=== PATIENT | female | born 1950 | race Hispanic/Latino ===

== ENCOUNTER → 2017-09-27 | Outpatient (CLI) | payer MEDICARE, OTHER ==
--- NOTE | 2017-09-27 23:41 | Diagnostic Imaging Report ---
History: Back pain. Comparison studies: None Technique: Sagittal , coronal and axial T2 , sagittal T1 and IR, axial T2 FS and PD. Intravenous contrast: None Findings: Number of lumbar vertebral bodies: 5. Alignment: Normal lordosis. Mild levocurvature of the lumbar spine. 2 mm grade 1 anterolisthesis at L4-L5 and 3 mm grade 1 retrolisthesis at L5-S1. Soft tissues: Nonspecific right moderate hydronephrosis is partially visualized. Paraspinal muscles: No signal abnormalities. Well-preserved. No atrophic changes Lower thoracic cord: Normal in signal and morphology. The tip of the conus is at superior endplate of L2 . Cauda equina: No masses. No arachnoiditis. Vertebrae: Superior endplate Schmorl's node at L3. No compression fractures, infection or neoplasm. Degenerative changes: L1-L2: No abnormalities L2-L3: Mild degenerative disc disease and superior endplate Schmorl's node at L3. No canal or foraminal stenosis. L3-L4: Mild degenerative disc disease. Mild disc bulge towards the left without canal or foraminal stenosis. L4-L5: Mild degenerative disc disease. Disc bulge in combination with buckling of markedly thickened ligamentum flavum and bilateral facet arthrosis results in moderate to severe canal stenosis. No significant foraminal stenosis. Bilateral severe facet arthrosis with small amount of fluid in the facet joints. L5-S1: Mild degenerative disc disease. Disc bulge with superimposed 4.5 mm left subarticular disc protrusion with possible contact of left S1 nerve root. No significant canal or foraminal stenosis. Moderate right and mild left facet arthrosis. Visualized portion of bilateral sacroiliac joints: No significant abnormality. IMPRESSION: 1. Lumbar spondylosis extends from L2-L3 through L5-S1, results in moderate to severe canal stenosis at L4-L5. 2. Left subarticular disc protrusion at L5-S1 with possible contact of left S1 nerve root. 3. No significant foraminal stenosis. 4. Grade 1 anterolisthesis at L4-L5 and retrolisthesis at L5-S1. Mild levocurvature of the lumbar spine. 5. Incidental moderate right hydronephrosis is partially visualized, consider follow-up with dedicated renal ultrasonogram if previous workup has not been done. Signed by: Dr. Renate Forrester M.D. on 09/27/2017 11:38 PM
== END ==
LOC: MRI 14:00
PROVIDERS: ATTEND Emergency Medicine
DX: M54.16 Radiculopathy, lumbar region (principal); K76.0 Fatty (change of) liver, not elsewhere classified; K82.4 Cholesterolosis of gallbladder
CPT/HCPCS: 72148

== ENCOUNTER → 2017-10-04 | Outpatient (CLI) | payer MEDICARE, OTHER ==
--- NOTE | 2017-10-04 11:22 | Diagnostic Imaging Report ---
PROCEDURE:LIMITED ABDOMINAL ULTRASOUND COMPARISON:None. INDICATIONS:HEPATIC STEATOSIS, CHOLESTEROLOSIS OF GB FINDINGS: Liver: 17.8 cm in right mid-clavicular line. The liver demonstrates increased echogenicity with an area of focal fatty sparing near the gallbladder. No evidence of mass. Main portal vein: 1.2 cm in caliber. Hepatopedal flow. Gallbladder: No wall thickening, pericholecystic fluid, or shadowing calculus. Echogenic polyp along the anterior wall measures 5.9 mm with vascular flow. Common Bile Duct: 0.5 cm in caliber. Sonographic Cat's sign: Reported as negative. Right kidney: 11.5 cm. Normal renal cortical echogenicity. No solid masses. Moderate right hydronephrosis which persisted upon voiding. Pancreas: The visualized portions are unremarkable. Inferior vena cava: Patent Aorta: Non-aneurysmal Ascites: None in the right upper quadrant of the abdomen. CONCLUSION: Stable 5.9 mm gallbladder polyp. Followup right upper quadrant ultrasound in one year is suggested to assess for stability. Moderate right hydronephrosis, new since prior ultrasound, of unclear significance. No evidence of stone. The left kidney was not evaluated on this study. Dedicated abdominal CT or renal ultrasound is recommended for further evaluation. Hepatomegaly with fatty liver. Dictated by: LUANA LOMELI M.D. on 10/04/2017 at 11:26 Electronically approved by: LUANA LOMELI M.D. on 10/04/2017 at 11:26
== END ==
LOC: US 09:57
PROVIDERS: ATTEND Emergency Medicine
DX: M54.16 Radiculopathy, lumbar region (principal); K76.0 Fatty (change of) liver, not elsewhere classified; K82.4 Cholesterolosis of gallbladder
CPT/HCPCS: 76705

== ENCOUNTER → 2018-04-29 | Outpatient (CLI) | payer MEDICARE, OTHER ==
--- NOTE | 2018-04-29 15:16 | Diagnostic Imaging Report ---
EXAM: BONE MINERAL DENSITY HISTORY: Bone mineralization evaluation COMPARISON: None DISCUSSION: Evaluation of the left hip and lumbar spine was performed utilizing DEXA Hologic bone densitometer. The study is technically adequate. Left hip femoral neck bone mineral density: 0.59 g/cm2, T-score is -2.4, Z-score is -0.8. Left hip total bone mineral density: 0.73 g/cm2, T-score is -1.7, Z-score is -0.4. Lumbar spine total bone mineral density: 0.79 gm/cm2, T-score is -2.3, Z-score is -0.2. 10 year fracture risk major osteoporotic fracture 6.6% and hip fracture 1.2%. Impression: Bone mineralization by WHO Classification is low bone mass/osteopenia, the fracture risk is increased. Signed by: Dr. Yariel Hanson M.D. on 04/29/2018 3:13 PM
--- NOTE | 2018-04-29 16:55 | Diagnostic Imaging Report ---
Radiographs of the left and right ankle 3 views each ankle - HISTORY: Pain COMPARISON: None available. FINDINGS: Bones: No acute displaced fracture. Osseous alignment is within normal limits. Joints: Scattered degenerative change. No osseous erosion. Posterior calcaneal bone spurs. Soft tissues: The soft tissues appear unremarkable. IMPRESSION: Scattered degenerative change. No osseous erosion. Posterior calcaneal bone spurs. Signed by: Dr. Balwinder Germain M.D. on 04/29/2018 4:51 PM
--- NOTE | 2018-04-29 16:57 | Diagnostic Imaging Report ---
Radiographs of the left foot 3 views HISTORY: Pain COMPARISON: None available. FINDINGS: Bones: No acute displaced fracture. Osseous alignment is within normal limits. Joints: Scattered degenerative change. No osseous erosion. Posterior calcaneal bone spur Soft tissues: Soft tissue prominence at the dorsal aspect of the foot. IMPRESSION: Scattered degenerative change. No osseous erosion. Posterior calcaneal bone spur Soft tissue prominence at the dorsal aspect of the foot Signed by: Dr. Balwinder Germain M.D. on 04/29/2018 4:54 PM
== END ==
LOC: DX 14:12
PROVIDERS: ATTEND Emergency Medicine
DX: M81.0 Age-related osteoporosis without current pathological fracture (principal)
CPT/HCPCS: 77080

== ENCOUNTER 2019-01-13 07:21 | Inpatient (IN) | payer MEDICARE, OTHER ==
--- NOTE | 2019-01-02 13:08 | Diagnostic Imaging Report ---
Chest, 2 views, 01/02/2019. History: Preop, gastric sleeve surgery. Comparison: None available. Findings: The cardiomediastinal silhouette and pulmonary vasculature are within normal limits. There is minimal biapical pleural thickening. The lungs are clear without evidence of consolidation or pleural effusion. Mild degenerative changes are present in the thoracic spine. There are no acute osseous or soft tissue abnormalities. Impression: No acute cardiopulmonary abnormality. Signed by: Wallace Bell on 01/02/2019 1:04 PM
[2019-01-02 13:11] LABS: BASOPHILS % 0.1 % (0.0-1.0); EOSINOPHILS # (AUTO) 0.1 (0.0-0.4); EOSINOPHILS % 0.9 % (0.0-6.0); HEMATOCRIT 41.3 % (34.2-44.1); HEMOGLOBIN 14.2 g/dL (12.0-16.0); LYMPHOCYTES # (AUTO) 2.9 (1.0-3.2); LYMPHOCYTES % 37.2 % (18.0-39.1); MEAN CORPUSCULAR HEMOGLOBIN 30.1 pg (28-32); MEAN CORPUSCULAR HGB CONC 34.4 g/dL (31-35); MEAN CORPUSCULAR VOLUME 87.5 fL (81-99); MONOCYTES # (AUTO) 0.4 (0.2-0.8); MONOCYTES % 5.3 % (4.4-11.3); NEUTROPHILS # (AUTO) 4.3 (2.1-6.9); NEUTROPHILS % 56.2 % (38.7-80.0); PLATELET COUNT 279 x10e3/uL (140-360); RED BLOOD COUNT 4.72 x10e6/uL (3.6-5.1); RED CELL DISTRIBUTION WIDTH 12.6 % (11.7-14.4)
[~2019-01-13] VITALS: Ht 160 cm; Wt 98.9 kg
[~2019-01-13 07:21] MED LIST: AMLODIPINE BESY10 MG PO; CALCIUM GUMMIE1 EACH PO; CLONIDINE HCL0.2 MG PO; IBUPROFEN200 MG PO; LISINOPRIL10 MG PO; OMEPRAZOLE40 MG PO; PRAVASTATIN SOD40 MG PO; [UNRECOGNIZED DRUG - OTHER] PO
--- OUTSIDE RECORDS SUMMARY | 2019-01-13 07:37 | XMS REPORT ---
Author Author [facility] Address Unknown Phone Unavailable Care Team Providers Care Recycling Specialist Name Role Phone Chantelle FONG Unavailable Unavailable ANGELITO JONES Unavailable Unavailable Problems This patient has no known problems. Allergies, Adverse Reactions, Alerts This patient has no known allergies or adverse reactions. Medications This patient has no known medications. Results Test Description Test Time Test Comments Text Results Atomic Results Result Comments CHEST 2 VIEWS 2019-01-02 13:04:00 [place] [address] Patient Name: GRANT DE JESUS MR #: [id number] : 1950 Age/Sex: 68/F Req #: [id number] Adm Physician: Ordered by: LIONEL FONG MD Report #: [id number] Location: OR Room/Bed: Procedure: [id number] DX/CHEST 2 VIEWS Exam Date: 01/02/19 Exam Time: 1233 REPORT STATUS: Signed Chest, 2 views, 01/02/2019. History: Preop, g astric sleeve surgery. Comparison: None available. Findings: The cardiomediastinal silhouette and pulmonary vasculature are within normal limits. There is minimal biapical pleural thickening. The lungs are clear without evidence of consolidation or pleural effusion. Mild degenerative changes are present in the thoracic spine. There are no acute osseous or soft tissue abnormalities. Impression: No acute cardiopulmonary abnormality. Signed by: Wallace Bell on 01/02/2019 1:04 PM Dictated By: WALLACE BELL MD 03 Transcribed By: ITZEL on 01/02/191303 COPY TO: LIONEL FONG MD FOOT LEFT COMPLETE 2018-04-29 16:52:00 [facility] [address] [place] [address] Patient Name: GRANT DE JESUS MR #: [id number] : 1950 Age/Sex: 67/F Req #: [id number] Adm Physician: Ordered by: ANGELITO JONES MD Report #: [id number] Location: DX Room/Bed: Procedure: [id number] DX/FOOT LEFT COMPLETE Exam Date: 04/29/18 Exam Time: 1538 REPORT STATUS: Signed Radiographs of the left foot 3 views HISTORY: Pain COMPARISON: None available. FINDINGS: Bones: No acute displaced fracture. Osseous alignment is within normal limits. Joints: Scattered degenerative change. No osseous erosion. Posterior calcaneal bone spur Soft tissues: Soft tissue prominence at the dorsal aspect of the foot. IMPRESSION: Scattered degenerative change. No osseous erosion. Posterior calcaneal bone spur Soft tissue prominence at the dorsal aspect of the foot Signed by: Dr. Argenis Germain M.D. on 04/29/2018 4:54 PM Dictated By: ARGENIS GERMAIN MD, MD 1654 Transcribed By: ITZEL on 04/29/181653 COPY TO: ANGELITO JONES MD ANKLE COMPLETE BILATERAL 2018-04-29 16:50:00 [facility] [address] [place] [address] Patient Name: GRANT DE JESUS MR #: [id number] : 1950 Age/Sex: 67/F Req #: [id number] Adm Physician: Ordered by: ANGELITO JONES MD Report #: [id number] Location: DX Room/Bed: Procedure: [id number] DX/ANKLE COMPLETE BILATERAL Exam Date: Exam Time: REPORT STATUS: Signed Radiographs of the left and right ankle 3 views each ankle - HISTORY: Pain COMPARISON: None available. FINDINGS: Bones: No acute displaced fracture. Osseous alignment is within normal limits. Joints: Scattered degenerative change. No osseous erosion. Posterior calcaneal bone spurs. Soft tissues: The soft tissues appear unremarkable. IMPRESSION: Scattered degenerative change. No osseous erosion. Posterior calcaneal bone spurs. Signed by: Dr. Argenis Germain M.D. on 04/29/2018 4:51 PM Dictated By: ARGENIS GERMAIN MD, MD 50 Transcribed By: ITZEL on 04/29/181650 COPY TO: ANGELITO JONES MD BONE DXA DUAL ENERGY 2018-04-29 15:12:00 [facility] [address] [place] [address] Patient Name: GRANT DE JESUS MR #: [id number] : 1950 Age/Sex: 67/F Req #: [id number] Adm Physician: Ordered by: ANGELITO JONES MD Report #: [id number] Location: DX Room/Bed: Procedure: [id number] DX/BONE DXA DUAL ENERGY Exam Date: Exam Time: REPORT STATUS: Signed EXAM: BONE MINERAL DENSITY HISTORY: Bone mineralization evaluation COMPARISON: None DISCUSSION: Evaluation of the left hip and lumbar spine was performed utilizing DEXA Hologic bone densitometer. The study is technically adequate. Left hip femoral neck bone mineral density: 0.59 g/cm2, T-score is -2.4, Z-score is -0.8. Left hip total bone mineral density: 0.73 g/cm2, T-score is -1.7, Z-score is -0.4. Lumbar spine total bone mineral density: 0.79 gm/cm2, T-score is -2.3, Z-score is -0.2. 10 year fracture risk major osteoporotic fracture 6.6% and hip fracture 1.2%. Impression: Bone mineralization by WHO Classification is low bone mass/osteopenia, the fracture risk is increased. Signed by: Dr. Talia Lebron M.D. on 04/29/2018 3:13 PM Dictated By: TALIA LEBRON MD 1513 Transcribed By: ITZEL on 04/29/18 1516 COPY TO: ANGELITO JONES MD US ABDOMEN LIMITED 2017-10-04 11:26:00 [place] [address] Patient Name: GRANT DE JESUS MR #: [id number] : 1950 Age/Sex: 66/F Req #: [id number] Adm Physician: Ordered by: ANGELITO JONES MD Report #: [id number] Location: Room/Bed: Procedure: [id number] US/US ABDOMEN LIMITED Exam Date: 10/04/17 Exam Time: 1017 REPORT STATUS: Signed PROCEDURE: LIMITED ABDOMINAL ULTRASOUND COMPARISON: None. INDICATIONS: HEPATIC STEATOSIS, CHOLESTEROLOSIS OF GB FINDINGS: Liver: 17.8 cm in right mid-clavicular line. The liver demonstrates increased echogenicity with an area of focal fatty sparing near the gallbladder. No evidence of mass. Main portal vein: 1.2 cm in caliber. Hepatopedal flow. Gallbladder: No wall thickening, pericholecystic fluid, or shadowing calculus. Echogenic polyp along the anterior wall measures 5.9 mm with vascular flow. Common Bile Duct: 0.5 cm in caliber. Sonographic Cat's sign: Reported as negative. Right kidney: 11.5 cm. Normal renal cortical echogenicity. No solid masses. Moderate right hydronephrosis which persisted upon voiding. Pancreas: The visualized portions are unremarkable. Inferior vena cava: Patent Aorta: Non-aneurysmal Ascites: None in the right upper quadrant of the abdomen. CONCLUSION: Stable 5.9 mm gallbladder polyp. Followup right upper quadrant ultrasound in one year is suggested to assess for stability. Moderate right hydronephrosis, new since prior ultrasound, of unclear significance. No evidence of stone. The left kidney was not evaluated on this study. Dedicated abdominal CT or renal ultrasound is recommended for further evaluation. Hepatomegaly with fatty liver. Dictated by: LUANA LOMELI M.D. on 10/04/2017 at 11:26 Electronically approved by: LUANA LOMELI M.D. on 10/04/2017 at 11:26 Dictated By: LUANA LOMELI MD 1126 Transcribed By: JAYDE on 10/04/17 1126 COPY TO: ANGELITO JONES MD MRI SPINE LUMBAR WO 2017-09-27 23:17:[address] [place] [address] Patient Name: GRANT DE JESUS MR #: [id number] : 1950 Age/Sex: 66/F Acc #: [id number] Req #: [id number] [facility] Physician: Ordered by: ANGELITO JONES MD Report #: [id number] Location: MRI Room/Bed: Procedure: [id number] MRI/MRI SPINE LUMBAR WO Exam Date: Exam Time: REPORT STATUS: Signed History: Back pain. Comparison studies: None Technique: Sagittal , coronal and axial T2 , sagittal T1 and IR, axial T2 FS and PD. Intravenous contrast: None Findings: Number of lumbar vertebral bodies: 5. Alignment: Normal lordosis. Mild levocurvature of the lumbar spine. 2 mm grade 1 anterolisthesis at L4-L5 and 3 mm grade 1 retrolisthesis at L5-S1. Soft tissues: Nonspecific right moderate hydronephrosis is partially visualized. Paraspinal muscles: No signal abnormalities. Well-preserved. No atrophic changes Lower thoracic cord: Normal in signal and morphology. The tip of the conus is at superior endplate of L2 . Cauda equina: No masses. No arachnoiditis. Vertebrae: Superior endplate Schmorl's node at L3. No compression fractures, infection or neoplasm. Degenerative changes: L1-L2: No abnormalities L2-L3: Mild degenerative disc disease and superior endplate Schmorl's node at L3. No canal or foraminal stenosis. L3-L4: Mild degenerative disc disease. Mild disc bulge towards the left without canal or foraminal stenosis. L4-L5: Mild degenerative disc disease. Disc bulge in combination with buckling of markedly thickened ligamentum flavum and bilateral facet arthrosis results in moderate to severe canal stenosis. No significant foraminal stenosis. Bilateral severe facet arthrosis with small amount of fluid in the facet joints. L5-S1: Mild degenerative disc disease. Disc bulge with superimposed 4.5 mm left subarticular disc protrusion with possible contact of left S1 nerve root. No significant canal or foraminal stenosis. Moderate right and mild left facet arthrosis. Visualized portion of bilateral sacroiliac joints: No significant abnormality. IMPRESSION: 1. Lumbar spondylosis extends from L2-L3 through L5-S1, results in moderate to severe canal stenosis at L4- L5. 2. Left subarticular disc protrusion at L5-S1 with possible contact of left S1 nerve root. 3. No significant foraminal stenosis. 4. Grade 1 anterolisthesis at L4-L5 and retrolisthesis at L5-S1. Mild levocurvature of the lumbar spine. 5. Incidental moderate right hydronephrosis is partially visualized, consider follow-up with dedicated renal ultrasonogram if previous workup has not been done. Signed by: Dr. Renate Forrester M.D. on 09/27/2017 11:38 PM Dictated By: RENATE FORRESTER MD 1990 Transcribed By: ITZEL on 09/27/17 3340 COPY TO: ANGELITO JONES MD
[2019-01-13] MEDS ORDERED: CEFAZOLIN SOD 1 GM/NS 50ML 100 ML IV ONE (08:29)
[2019-01-13] MEDS ORDERED: SUGAMMADEX SODIUM 200 MG/2 ML VIAL IV ONE (10:04)
[2019-01-13] MEDS ORDERED: BUPIVACAINE 0.25% 30ML SDV INJ ONE (10:13)
[2019-01-13] MEDS: SODIUM CHLORIDE 0.9% 1000ML 1,000 ML IV SCH ×2 (10:38→20:17)
[2019-01-13] MEDS ORDERED: ONDANSETRON HCL INJ 2MG/ML 2ML 2 MG/ML VIAL IV PRN (10:45)
[2019-01-13] MEDS ORDERED: SCOPOLAMINE 1.5 MG PATCH TOP SCH (10:45)
[2019-01-13] MEDS ORDERED: FENTANYL CITRATE/PF 100MCG/2 ML INJ ONE ×2 (13:13→18:02)
[2019-01-13] MEDS ORDERED: HYDRALAZINE HCL 20 MG/ML VIAL ONE (13:22)
[2019-01-13] MEDS ORDERED: SODIUM CHLORIDE 0.9% 1000ML 1,000 ML ONE (14:27)
--- NOTE | 2019-01-13 14:34 | Operative Report ---
DATE OF PROCEDURE: 01/13/2019 SURGEON: Zbigniew Flowers MD PREOPERATIVE DIAGNOSES: 1. Morbid obesity, BMI 36. 2. Obstructive sleep apnea. 3. Hypertension. POSTOPERATIVE DIAGNOSES: 1. Morbid obesity, BMI 36. 2. Obstructive sleep apnea. 3. Hypertension. PREOPERATIVE INDICATION: Treat disease, prevent complications related to comorbid conditions of obesity. PROCEDURES: 1. Laparoscopic vertical sleeve gastrectomy. 2. Laparoscopic hiatal hernia repair. ANESTHESIA: General. CPC CODER: Joel Francois, medical or surgical instrument maker (needed due to complexity of case). FLUIDS: 700 mL of crystalloid. ESTIMATED BLOOD LOSS: 20 mL. DRAINS: None. COMPLICATIONS: None. SPECIMENS: Partial stomach. GRAFTS: None. FINDINGS: 1. Small hiatal hernia. 2. Negative intraoperative EGD leak test. PROCEDURE IN DETAIL: The patient was brought to the operating room and was intubated under general endotracheal anesthesia. She was positioned in supine with both arms abducted and all pressure points were properly padded. She was sterilely prepped and draped in the usual fashion. A preprocedure pause was performed identifying the patient, use of perioperative antibiotics, intended procedure, and staff surgeon. Access was gained to the peritoneal cavity via a 5 mm left subcostal incision using a Veress needle. The abdomen was insufflated. Four additional trocars were placed in the standard position. Liver retractor was used to expose the stomach and the hiatus. The greater curvature of the stomach was mobilized by using the [place] LigaSure device from about 4 cm from the proximal to the pyloric valve to the left terell of the diaphragm. There was a small sliding hiatal hernia, which was reduced from the right and left terell of the diaphragm using the [place] LigaSure device; it was repaired with 2-0 Surgidac suture in interrupted fashion. Next, an inserted an adult-sized endoscope along the lesser curvature of the stomach. The greater curvature of stomach was resected with 6 firings of a 60 mm purple load Covidien stapling device. We then conducted intraoperative EGD leak test. No leaks were identified. The specimen was removed through the right periumbilical port site. The port site was closed with 0 Vicryl suture using the Femi Montes De Oca technique in a [id number] fashion. We then verified hemostasis. Hemoclips were applied on the staple line where they were necessary. The liver retractor was removed and the abdomen was desufflated. The trocars were removed. Incision sites were closed with 4-0 Monocryl suture in a subcuticular fashion. Dermabond dressings were applied. A 0.25% bupivacaine was used both at the preperitoneal incision sites. The patient tolerated the procedure well. Type of wound was type 2, clean, contaminated. All surgical sponge and instrument counts were correct. MD GRAEME Arriaza/NENOL /[id number]
[2019-01-13 16:08] VITALS: BP 159/65
--- NOTE | 2019-01-13 16:10 | NUR ---
Recvd patient from PACU , AAOx3, 5 Trochar site on the abdomen is intact, call light in reach, patient not in any distress
[2019-01-13] MEDS ORDERED: LIDOCAINE HCL 2% LOCAL INJ 5 ML SDV VIAL INJ ONE (16:34)
[2019-01-13] MEDS ORDERED: SEVOFLURANE INHAL SOLN 250 ML PEN BTL ONE (16:34)
[2019-01-13] MEDS ORDERED: ONDANSETRON HCL INJ 2MG/ML 2ML 2 MG/ML VIAL ONE (16:34)
[2019-01-13] MEDS ORDERED: DEXAMETHASONE SOD PHOS INJ 4 MG/ML VIAL ONE (16:34)
[2019-01-13] MEDS ORDERED: LIDOCAINE HCL 2% JELLY 5 ML TUBE ONE (16:34)
[2019-01-13] MEDS ORDERED: ROCURONIUM BROMIDE 10 MG/ML 5ML VIAL ONE (16:34)
[2019-01-13] MEDS ORDERED: PROPOFOL IV EMULSION 10 MG/ML 20 ML VIAL ONE (16:34)
[2019-01-13 16:35] VITALS: BP 159/65
--- NOTE | 2019-01-13 18:00 | History and Physical ---
CHIEF COMPLAINT: "I had weight loss surgery." HISTORY OF PRESENT ILLNESS: This 68-year-old woman, who was admitted to [facility] with diagnosis of obesity, BMI 38, complicated underlying hypertension. The patient underwent laparoscopic vertical sleeve gastrectomy today. She also underwent laparoscopic hiatal hernia repair. The patient tolerated surgery quite well. The patient voices no complaints. The patient states she still has not belched nor she had any flatus. REVIEW OF SYSTEMS: GENERAL: Weight is stable. No fever or chills. HEENT: No headaches. No visual changes. CARDIOVASCULAR/RESPIRATORY: No chest pain. No shortness of breath or cough. GI: Nausea, vomiting, diarrhea, or constipation, but the patient denies any flatus or belching today and just need bowel movements. : Fitzpatrick catheter has been removed. NEUROMUSCULAR: Denies any limb weakness or numbness. PAST MEDICAL HISTORY: 1. Hypertensive heart disease. 2. Sleep apnea. 3. Obesity, BMI 38. 4. Hyperlipidemia. 5. Gastroesophageal reflux disease. ALLERGIES: NO KNOWN DRUG ALLERGIES. MEDICATIONS: 1. Amlodipine 10 mg every night. 2. Calcium phosphate with vitamin D once daily. 3. Clonidine 0.2 mg b.i.d. 4. Ibuprofen 600 mg b.i.d. 5. Lisinopril 40 mg b.i.d. 6. Omeprazole 20 mg daily. 7. Pravastatin 40 mg at bedtime. 8. NutraMetrix 8 ounces once daily. PAST SURGICAL HISTORY: 1. Hysterectomy at age 39. 2. Tonsillectomy at age 25. 3. Left sided tube tympanostomy placement twice. SOCIAL HISTORY: She is woman, she is retired. [facility]. No history of tobacco use. Drinks alcohol rarely. FAMILY HISTORY: Multiple members with hypertension, type 2 diabetes mellitus. PHYSICAL EXAMINATION: GENERAL: She is awake, alert, fluent, very pleasant. Her adult daughter is at bedside. VITAL SIGNS: 5 feet 3 inches, weight is 218 pounds, BMI 38. Blood pressure is 158/66, pulse 66, respiratory rate 18, oxygen saturation 97% on room air, and temperature of 98.6. INTEGUMENT: Skin is warm and dry. No pallor, jaundice, or diaphoresis. HEENT: Anterior sclerae with moist mucous membranes. NECK: Supple. CARDIOVASCULAR: Distant heart sounds. Regular rate and rhythm. LUNGS: No rales, no rhonchi. No wheeze. ABDOMEN: Soft. It is obese. The patient's laparoscopic incisions are clean, dry, and intact. No bowel sounds auscultated. EXTREMITIES: No edema or deformity. She is currently wearing sequential compression devices. NEUROLOGIC: Intact. DIAGNOSES: 1. Obesity, BMI 38, complicated underlying hypertension, sleep apnea. 2. Status post laparoscopic vertical sleeve gastrectomy and hiatal hernia repair. 3. Hypertensive heart disease. 4. Obstructive sleep apnea. 5. Hyperlipidemia. PLAN: 1. Resume home medications. 2. Intravenous fluids. 3. Start enoxaparin for deep venous thrombosis prophylaxis. 4. Mobilize. 5. Encourage incentive spirometry use to prevent atelectasis. I would like to thank, Dr. Flowers for involving me in the care of this patient. I spent 40 minutes in the care of this patient. MD ROSEANN Recinos/[place] /[id number] MTDSimon
[2019-01-13] MEDS ORDERED: KETAMINE HCL INJ 50 MG/ML 10 ML VIAL ONE (18:02)
[2019-01-13] MEDS ORDERED: MIDAZOLAM HCL 2 MG/2 ML VIAL ONE (18:02)
[2019-01-13 19:00] VITALS: BP 159/65
[2019-01-13 19:52] VITALS: BP 167/76
[2019-01-13] MEDS: MORPHINE SULFATE 2 MG/ML SYR 1ML IV PRN (20:17)
[2019-01-13] MEDS ORDERED: NON-FORMULARY MEDICATION (Pravastatin Sodium 40 MG) PO SCH (21:00)
[2019-01-13] MEDS ORDERED: PRAVASTATIN 20 MG TAB PO SCH (21:00)
[2019-01-13] MEDS ORDERED: AMLODIPINE BESYLATE 10 MG TAB PO SCH (21:00)
[2019-01-13] MEDS: ENOXAPARIN SOD INJ 40 MG/0.4 ML SYR SC SCH (22:34)
[2019-01-14] VITALS: BP 158/93
[2019-01-14] MEDS: SODIUM CHLORIDE 0.9% 1000ML 1,000 ML IV SCH (02:05)
[2019-01-14 04:00] VITALS: BP 187/78
[2019-01-14] MEDS: MORPHINE SULFATE 2 MG/ML SYR 1ML IV PRN (04:18)
[2019-01-14 05:38] LABS: BASOPHILS % 0.2 % (0.0-1.0); HEMATOCRIT 41.7 % (34.2-44.1); HEMOGLOBIN 13.7 g/dL (12.0-16.0); LYMPHOCYTES # (AUTO) 2.2 (1.0-3.2); LYMPHOCYTES % 19.3 % (18.0-39.1); MEAN CORPUSCULAR HEMOGLOBIN 29.3 pg (28-32); MEAN CORPUSCULAR HGB CONC 32.9 g/dL (31-35); MEAN CORPUSCULAR VOLUME 89.1 fL (81-99); MONOCYTES # (AUTO) 0.5 (0.2-0.8); NEUTROPHILS # (AUTO) 8.6 (2.1-6.9); PLATELET COUNT 273 x10e3/uL (140-360); RED BLOOD COUNT 4.68 x10e6/uL (3.6-5.1); RED CELL DISTRIBUTION WIDTH 12.8 % (11.7-14.4)
[2019-01-14 06:00] LABS: ALANINE AMINOTRANSFERASE 50 IU/L (0-55); ALBUMIN 3.5 g/dL (3.5-5.0); ALKALINE PHOSPHATASE 80 IU/L (40-150); ANION GAP 17.4 mmol/L (8-16); BLOOD UREA NITROGEN 11 mg/dL (7-26); BUN/CREATININE RATIO 14 (6-25); CARBON DIOXIDE 22 mmol/L (22-29); CHLORIDE 107 mmol/L (98-107); CREATININE, SERUM 0.76 mg/dL (0.57-1.11); EST GLOMERULAR FILTRATION RATE > 60 ML/MIN (60-); GLUCOSE 110 mg/dL (74-118); MAGNESIUM 1.8 MG/DL (1.3-2.1); PHOSPHORUS 2.8 MG/DL (2.3-4.7); POTASSIUM 3.4 mmol/L (3.5-5.1); SODIUM 143 mmol/L (136-145)
[2019-01-14 07:27] VITALS: BP 167/80
--- NOTE | 2019-01-14 07:30 | NUR ---
PROGRESS NOTE S: No complaints O: AF, VSS General- no distress Abdomen- soft, incisions healing well A/P: POD 1, s/p Lap sleeve gastrectomy -Clears, ambulate, IS, OOB to chair -Instructions for diet and follow up given to patient -OK to dc home today from surgery perspective
[2019-01-14] MEDS ORDERED: HYDROCODONE/APAP 7.5MG-325MG 1 EA TAB PO PRN (08:00)
[2019-01-14] MEDS ORDERED: LISINOPRIL 20 MG TAB PO SCH (09:00)
[2019-01-14] MEDS ORDERED: LISINOPRIL 10 MG TAB PO SCH (09:00)
[2019-01-14] MEDS ORDERED: CLONIDINE HCL 0.2 MG TAB PO SCH (09:00)
[2019-01-14] MEDS ORDERED: PANTOPRAZOLE SOD 40 MG TABEC PO SCH (09:00)
[2019-01-14] MEDS: ENOXAPARIN SOD INJ 40 MG/0.4 ML SYR SC SCH (09:39)
[2019-01-14 09:49] VITALS: BP 167/80
--- NOTE | 2019-01-14 10:28 | Discharge Summary ---
ADMITTING DIAGNOSES: 1. Obesity, BMI of 38, complicating underlying hypertension and sleep apnea. 2. Hypertensive heart disease. 3. Obstructive sleep apnea. 4. Hyperlipidemia. DISCHARGE DIAGNOSES: 1. Status post laparoscopic vertical sleeve gastrectomy and hiatal hernia repair. 2. Obesity, BMI of 38, complicating underlying hypertension and sleep apnea. 3. Hypertensive heart disease. 4. Obstructive sleep apnea. 5. Hyperlipidemia. HOSPITAL COURSE: This is a 68-year-old woman, who was initially admitted to [facility] with diagnosis of obesity, BMI of 38, complicating underlying hypertension and sleep apnea. During this hospitalization, the patient underwent successful laparoscopic vertical sleeve gastrectomy and hiatal hernia repair. Surgery was performed by her bariatric surgeon, namely Dr. Zbigniew Flowers. During this hospitalization, the patient was continued on oral amlodipine and lisinopril for blood pressure control. On day of discharge, she was tolerating a clear liquid diet. CONDITION ON DISCHARGE: Stable. DISCHARGE MEDICATIONS: 1. Lisinopril 40 mg b.i.d. 2. Pantoprazole 40 mg daily. 3. Clonidine 0.2 mg b.i.d. 4. Amlodipine 10 mg at bedtime. 5. Tylenol No. 3, one pill every 6 hours p.r.n. pain, 20 prescribed, no refills. 6. Zofran 4 mg one p.o. q.6 hours p.r.n. nausea and vomiting, 20 prescribed, no refill. 7. Pravastatin 40 mg at bedtime. 8. Calcium with Vitamin D3. 9. The patient is to stop ibuprofen under further notice. FOLLOWUP INSTRUCTIONS: The patient is instructed to follow up with Dr. Flowers within 1 week and follow up with her primary care physician within two weeks. MD ROSEANN Recinos/[place] /[id number] cc: Zbigniew Flowers MD MTDD
[2019-01-14] MEDS ORDERED: POTASSIUM CHLORIDE 10MEQ EA PO SCH (10:30)
[2019-01-14 11:14] VITALS: BP 148/76
--- NOTE | 2019-01-14 11:30 | NUR ---
Nutrition Screen Note RD Recommendation for Physician: - ADAT to full liquid, NCS per MD Plan of Care: RD following, monitoring for tolerance and adequacy - Diet education completed 01/14 Nutrition reason for involvement: MD Consult- post operative diet education for gastric bypass Primary Diagnose(s): laparoscopic sleeve gastrectomy PMH: HTN, GERD, HLD Ht: 63 in Wt: 218 lb BMI: 38.6 kg/m2 IBW: [address] Assessment: (01/14) 68 YOF admitted for gastric bypass procedure, POD#1 for lap sleeve gastrectomy and hiatal hernia repair. Pt seen today per MD consult for post op diet education. Pt educated on bariatric progression of full liquid and pureed diets, discussed protein supplements, and reviewed handouts. All questions and concerns addressed at time of visit. Chart reviewed. Labs and meds reviewed, noted K 3.4 this am. Will monitor and continue to follow. Current Diet: Bariatric Clear Liquid Malnutrition Evaluation (01/14/19) The patient does not meet criteria for a specified degree of malnutrition at this time. Will re-evaluate at follow-up as appropriate. Diet Education Needs Assessment: Diet education indicated, pt receptive. Learner(s): pt Barriers: none Cultural/Language Modifications: none Readiness: ready Method: handouts, discussion Topics: post-operative gastric bypass diet progression, full liquids, pureed diet, protein supplements, and MVI supplementation Understanding/Compliance: good Diet tolerance: tolerating CL diet Nutrition Care Level: Low Signed: Humera Schulz RD, LD, [facility]
[2019-01-14] MEDS ORDERED: POTASSIUM CHLORIDE 20 MEQ TAB CR PO STA (12:23)
[2019-01-14] MEDS ORDERED: TYLENOL WITH C1 EACH PO (13:02)
[2019-01-14] MEDS ORDERED: ZOFRAN4 MG PO (13:03)
== END 2019-01-14 13:30 | disposition home or self-care (01) | DRG 621 ==
LOC: OR 07:21 → PACU V 14:26 → OBSVTOIN 14:26 → IMCU 15:55
PROVIDERS: ADMIT Internal Medicine; ATTEND Internal Medicine
PROC: 0BQT4ZZ Repair Diaphragm, Percutaneous Endoscopic Approach (ICD-10-PCS; 2019-01-13)
PROC: 0DB64Z3 Excision of Stomach, Percutaneous Endoscopic Approach, Vertical (ICD-10-PCS; principal; 2019-01-13 10:15)
DX: E66.01 Morbid (severe) obesity due to excess calories (principal); Z68.38 Body mass index [BMI] 38.0-38.9, adult; I11.9 Hypertensive heart disease without heart failure; K21.9 Gastro-esophageal reflux disease without esophagitis; G47.33 Obstructive sleep apnea (adult) (pediatric); E78.5 Hyperlipidemia, unspecified; K76.0 Fatty (change of) liver, not elsewhere classified; K44.9 Diaphragmatic hernia without obstruction or gangrene; Z82.49 Family history of ischemic heart disease and other diseases of the circulatory system; Z83.3 Family history of diabetes mellitus
CPT/HCPCS: 36415; 71046; 80053; 83735; 84100; 85025; 93005; G0378; J0360; J0690; J1100; J1650; J2001; J2250; J2270; J2405; J3010; J7030

== ENCOUNTER → 2019-05-22 | Outpatient (CLI) | payer MEDICARE, OTHER ==
[~2019-05-22] MED LIST changes: +TYLENOL WITH C1 EACH PO; +ZOFRAN4 MG PO
--- NOTE | 2019-05-22 15:48 | Diagnostic Imaging Report ---
EXAM: Right upper quadrant abdominal ultrasound INDICATION: Right upper quadrant pain COMPARISON: None. TECHNIQUE: Transverse and longitudinal images of the right upper quadrant abdomen were obtained FINDINGS: Liver: Size: 14.3 cm in the right midclavicular line, normal Appearance: Increased echogenicity, smooth contour Mass: No focal masses Gallbladder: Echogenic nonmobile foci along the gallbladder wall measure up to 7 mm, likely polyps. No gallbladder distension, pericholecystic fluid, wall thickening, stone, or reported sonographic Cat's sign. Gallbladder wall measures 3 mm. Bile Ducts: Intrahepatic Ducts: No dilatation Extrahepatic Ducts: Common bile duct measures 2 mm Pancreas: Visualized portions of the pancreatic head, neck and proximal body are normal. Kidney: The right kidney measures 11.5 cm without evidence of hydronephrosis or stone. Vessels: Aorta: Visualized portions are normal Inferior Vena Cava: Visualized portions are normal Main Portal Vein: 1.0 cm, normal size with hepatopetal flow. Free Fluid: No ascites or pleural effusion IMPRESSION: Gallbladder polyps. No cholelithiasis or sonographic evidence of cholecystitis. Diffuse hepatic steatosis. Signed by: Yisel Arechiga MD on 05/22/2019 3:46 PM
== END ==
LOC: US 12:38
PROVIDERS: ATTEND Emergency Medicine
DX: K76.0 Fatty (change of) liver, not elsewhere classified (principal)
CPT/HCPCS: 76705

== ENCOUNTER → 2020-06-21 | Outpatient (CLI) | payer MEDICARE, OTHER | LOC: MRI 12:01 | PROVIDERS: ATTEND Emergency Medicine | DX: M54.16 Radiculopathy, lumbar region (principal); K76.0 Fatty (change of) liver, not elsewhere classified | CPT/HCPCS: 72148 ==

== ENCOUNTER → 2021-08-17 | Outpatient (CLI) | payer MEDICARE | LOC: MRI 13:19 | PROVIDERS: ATTEND Emergency Medicine | DX: M54.16 Radiculopathy, lumbar region (principal) | CPT/HCPCS: 72148 ==